=== PATIENT | female | born 1940 | race Caucasian/White ===

== ENCOUNTER 2016-06-30 19:25 | Inpatient (IN) | payer MEDICARE, MEDICAID ==
[~2016-06-30] VITALS: Ht 149.9 cm; Wt 75.8 kg
[~2016-06-30 19:25] MED LIST: ACETAMINOPHEN325 MG PO; ALDACTONE25 MG PO; ALEVE220 MG PO; ASPERCREME 5 OZ5 OZ TOPICAL; ASPIRIN325 MG PO; ASPIRIN81 MG PO; ATIVAN0.5 MG PO; ATIVAN1 MG PO; AZELASTINE137 MCG/0. NASAL; BENADRYL 2% CRE30 GM TOPICAL; BENADRYL25 MG PO; BUMETANIDE0.5 MG PO; BUMEX 1 MG TAB1 MG PO; BUMEX2 MG PO; C-10001000 MG PO; CALCIUM 600+D T1 TA1 PO; CELEXA20 MG PO; CEREFOLIN TAB1 TAB PO; COLACE100 MG PO; COMBIVENT RESPIM4 GM; COMBIVENT RESPIM4 GM INH; DULCOLAX10 MG/SUPP RC; EFFEXOR100 MG PO; EFFEXOR25 MG PO; FERROUS SULFAT325 MG PO; FLUOROMETHOLONE5 ML EACH EYE; GABAPENTIN100 MG PO; GLUCAGEN1 MG/VIAL IM; GLUCAGEN1 MG/VIAL SC; HUMALOG 30100 UNITS/ SC; IPRAT-ALBUT 0.5-3 ML UPD; ISOSORBIDE MONO30 M1 PO; Imdur PO; K-TAB10 MEQ PO; LANOXIN125 MCG PO; LANOXIN250 MCG PO; LANTUS INSULIN10 ML SC; LANTUS SOL100 UNIT/1 SC; LIDODERM 5 %1 PATCH TRANSDERM; LIPITOR10 MG PO; MIRALAX17 GM PO; MIRAPEX1 MG PO; MOBIC7.5 MG PO; NITROSTAT0.4 MG SL; NOVOLOG100 U/M1 SC; OXYCONTIN15 MG PO; PLAVIX75 MG PO; PRADAXA150 MG PO; PRADAXA75 MG PO; PRILOSEC20 MG PO; PROAIR HFA8.5 GM INH; PROTONIX40 MG PO; PROVENTIL HFA6.7 GM INH; RANEXA500 MG PO; RESTORIL15 MG PO; ROCEPHIN 1 GM/D51 G1 IM; SENOKOT-S TABLE1 TAB PO; SPIRIVA18 MCG INH; SYNTHROID125 MCG PO; SYNTHROID137 MCG PO; SYNTHROID75 MCG PO; TAMOXIFEN CITRA20 MG PO; THEOPHYLLINE A300 MG PO; ULTRAM50 MG PO; VITAMIN D31000 UNI2 PO; VITAMIN E600 UNIT PO; XOPENEX 0.0.63 MG/3 UPD; ZANAFLEX2 M1 PO; ZANAFLEX4 MG PO; ZANTAC150 MG PO; ZETIA10 MG PO; ZITHROMAX 500M500 MG PO; ZITHROMAX500 MG PO; [UNRECOGNIZED DRUG - OTHER] IM
[2016-06-30 20:28] LABS: BASOPHILS 0.4 % (0.0-2.0); EOSINOPHILS 0.4 % (0-7); HEMATOCRIT 27.5 % (36.0-48.0); HEMOGLOBIN 8.5 g/dL (12-16); IMMATURE GRANULOCYTES 0.1 % (0-5); LYMPHOCYTES 18.8 % (15-50); MCH 27.7 pg (26.0-34.0); MCHC 30.9 g/dL (31.0-37.0); MCV 89.6 fL (80.0-100.0); MONOCYTES 6.4 % (2-11); NEUTROPHILS 73.9 % (40-80); PLATELET COUNT 211 10x3/uL (130-400); RBC 3.07 10x6/uL (4.00-5.40); RDW 15.8 % (11.5-14.5); WBC 9.5 10x3/uL (4.8-10.8)
[2016-06-30 20:57] LABS: ALBUMIN 2.7 g/dL (3.4-5.0); ALKALINE PHOSPHATASE 94 U/L (46-116); ALT (SGPT) 28 U/L (10-68); BILIRUBIN - TOTAL 0.33 mg/dL (0.2-1.3); CALC OSMOLALITY 280 mosm/kg (275-300); CALCIUM 7.7 mg/dL (8.5-10.1); CHLORIDE - SERUM 99 mmol/L (98-107); CREATININE - SERUM 1.8 mg/dL (0.6-1.3); PROTEIN - SERUM 7.4 g/dL (6.4-8.2); SODIUM 134 mmol/L (136-145); UREA NITROGEN 39 mg/dL (7-18); eGFR NON AFRICAN AMERICAN 29 mL/min (90-120)
[2016-06-30 21:02] LABS: GLUCOSE 178 mg/dL (74-106)
[2016-06-30 21:12] LABS: CREATINE KINASE 291 UL (21-215)
[2016-06-30 21:18] LABS: TROPONIN-I 0.092 ng/mL (0.000-0.060)
[2016-06-30 22:21] LABS: APPEARANCE CLEAR (CLEAR); COLOR YELLOW (YELLOW)
[2016-06-30 22:22] LABS: BILIRUBIN NEGATIVE (NEGATIVE); GLUCOSE NEGATIVE (NEGATIVE); KETONE NEGATIVE (NEGATIVE); LEUKOCYTE ESTERASE NEGATIVE (NEGATIVE); NITRITE NEGATIVE (NEGATIVE); PROTEIN TRACE mg/dL (NEGATIVE); UROBILINOGEN NORMAL (NORMAL)
[2016-06-30 22:40] VITALS: BP 122/58
--- NOTE | 2016-06-30 22:40 | NUR ---
PT ARRIVED ON UNIT VIA STRETCHER, PT CONFUSED AND LETHARGIC AT THIS TIME, ON 2L NC WITH 97% O2 SAT. CRACKLES HEARD IN B/L UPPER LOBES, DIMINISHED IN B/L LOWER LOBES, S1S2, CM-NSR, PATENT RIGHT HAND PIV S/L, PATENT LEFT A/C PIV WITH NS INFUSING VIA PUMP, ABODMEN IS DISTENDED, HERNIA NOTED, HYPO BS, PATENT F/C WITH CONCENTRATED UOP, EDEMA NOTED IN ALL EXTREMETIES, ALL PPP, VSS, WILL CON'T TO MONITOR
[2016-06-30 22:52] VITALS: BP 122/58; BMI 33.8
[2016-06-30 23:00] VITALS: BP 128/60
--- NOTE | 2016-06-30 23:15 | NUR ---
CONSULT CALLED TO DR. DOMINIQUE, NEW ORDERS RECIEVED
[2016-06-30] MEDS ORDERED: IPRAT-ALBUT 0.5-3 ML UPD (23:19)
[2016-06-30] MEDS ORDERED: VOLTAREN100 GM TOPICAL (23:20)
[2016-06-30] MEDS ORDERED: SCOT-TUSSI10 MG/5 ML PO (23:20)
[2016-06-30 23:30] VITALS: BP 144/72
[2016-07-01] VITALS (23 sets, daily range): BP systolic 113–158; BP diastolic 51–130; Ht 149.9 cm; Wt 75.8 kg
--- NOTE | 2016-07-01 01:25 | NUR ---
PT AWAKE AT THIS TIME, ATTEMPTING TO CLIMB OOB, REORIENTED PT AT THIS TIME
--- NOTE | 2016-07-01 03:22 | NUR ---
REASSESSMENT COMPLETE, PT MORE AWAKE AT THIS TIME, STILL CONFUSED, RESTING COMFORTABLY
[2016-07-01 05:08] LABS: BASOPHILS 0.3 % (0.0-2.0); EOSINOPHILS 0.1 % (0-7); HEMATOCRIT 24.9 % (36.0-48.0); IMMATURE GRANULOCYTES 0.4 % (0-5); LYMPHOCYTES 30.7 % (15-50); MCHC 30.1 g/dL (31.0-37.0); MCV 89.6 fL (80.0-100.0); MEAN PLATELET VOLUME 9.2 fL (7.4-10.4); MONOCYTES 10.3 % (2-11); NEUTROPHILS 58.2 % (40-80); PLATELET COUNT 202 10x3/uL (130-400); RBC 2.78 10x6/uL (4.00-5.40); RDW 15.6 % (11.5-14.5); WBC 7.5 10x3/uL (4.8-10.8)
--- NOTE | 2016-07-01 05:16 | NUR ---
LABS REVIEWED. BS 78 GIVEN APPLE JUICE. WILL REASSESS.
[2016-07-01 05:20] LABS: HEMOGLOBIN 7.5 g/dL (12-16)
[2016-07-01 05:59] LABS: ALBUMIN 2.1 g/dL (3.4-5.0); BILIRUBIN - TOTAL 0.27 mg/dL (0.2-1.3); CARBON DIOXIDE 25.5 mmol/L (21.0-32.0); CREATININE - SERUM 1.6 mg/dL (0.6-1.3); MAGNESIUM - SERUM 1.8 mg/dL (1.8-2.4); PHOSPHOROUS 3.1 mg/dL (2.5-4.9); POTASSIUM - SERUM 4.5 mmol/L (3.5-5.1); PROTEIN - SERUM 6.6 g/dL (6.4-8.2); TROPONIN-I 0.157 ng/mL (0.000-0.060)
[2016-07-01 06:00] LABS: CALCIUM 6.6 mg/dL (8.5-10.1)
--- NOTE | 2016-07-01 07:00 | NUR ---
REPORT RECIEVED, INITIAL ASSESSMENT COMPLETE, PLEASE SEE FLOW SHEETS FOR DETAILS. PT CONFUSED, SAID SHE LIVED AT HOME WITH HER DAUGHTER AND SON-IN-LAW, WHEN IN FACT SHE CAME FROM [facility]. ASKED FOR WATER AND THIS WAS PROVIDED AND SHE SPIT IN ON THE FLOOR, THEN ASKED FOR MORE AND SWALLOWED. BED LOW AND LOCKED, CALL LIGHT IN REACH, BED ALAERM ON. VSS AT THIS TIME, WILL CONTINUE TO MONITOR.
--- NOTE | 2016-07-01 08:09 | NUR ---
PT STARTED PULLING ON LLAMAS AND WHEN CHECK WOULD NOT SLIGHTLY ADVANCE OR COME OUT, LLAMAS WAS DC'D WITH 400 SLIGHTLY BLOODY URINE. PT AGGITATED AND YELLING OUT THAT SHE NEEDS HELP, WHEN ASKED WHY RAMAMEHNAZ SAID SHE NEEDED TO "GET OUTTA HERE". WILL CONTINUE TO MONITOR.
--- NOTE | 2016-07-01 08:17 | NUR ---
PAGED DR SPRAGUE ABOUT PT H&H.
--- NOTE | 2016-07-01 08:45 | NUR ---
SPOKE WITH DR SPRAGUE, RECIVED NEW ORDERS TO GIVE ATIVAN 0.5MG Q2H PRN, TYPE AND SCREEN FOR ONE UNIT OF PRBC, AND TO GIVE LASIX ONCE THE PRBC WERE GIVEN.
--- NOTE | 2016-07-01 09:00 | NUR ---
PT AGGITATED AND TALKING TO SOMEONE THAT IS NOT THERE, WHEN ASKED IF SHE WANTED BREAKFAST SHE SAID NOT. FAMILY ENTERED ROOM AND SHE TOLD THEM SHE WAS HUNGRY AND THIRSTY. THAT FAMILY MEMBER FED HER THE JELLO AND SHE DID NOT WANT ANY MORE. ONCE FAMILY MEMBER GONE, WENT BACK INTO ROOM AND ASKED IF SHE WANTED MORE AND SHE SAID NO. PT STARTED YELLING AT ME TO LEAVE HER ALONE SO I LEFT THE ROOM.
--- NOTE | 2016-07-01 10:15 | NUR ---
PT RIPPED OUT RIGHT HAND PIV. DRESSING APPLIED. WILL MONITOR AND ATTEMPT TO PLACE NEW PIV.
--- NOTE | 2016-07-01 10:42 | NUR ---
PATIENT IS A PATIENT FROM [facility]. SHE IS CONFUSED AND NOT ABLE TO ANSWER MY QUESTIONS. SHE SHOULD RETURN TO [facility] AT DISCHARGE. CM TO FOLLOW.
--- NOTE | 2016-07-01 11:02 | NUR ---
Is the patient Alert and Oriented? No 0 * Facility Name [facility] 0 * ADLs Total Dependent 0 * Additional services required to return to the preadmission environment? No 0 * Can the patient safely return to the preadmission environment? Yes 0 * Has this patient been hospitalized within the prior 30 days at any hospital? No VISIT FROM ZEHRA MORGAN, AT [facility]. 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 SHE STATES PATIENT IS A FULL CODE. CM TO FOLLOW.
--- NOTE | 2016-07-01 11:15 | NUR ---
REASSESSMENT COMPLETE, PLEASE SEE FLOW SHEETS FOR DETAILS. VSS AT THIS TIME, WILL CONTINUE TO MONITOR.
--- NOTE | 2016-07-01 13:00 | NUR ---
PT NOT TRYING TO GET OOB, VSS AT THIS TIME, BED LOW AND LOCKED, WILL CONTINUE TO MONITOR.
--- NOTE | 2016-07-01 13:30 | NUR ---
DANUTA RN ATTEMPTED IV PLACEMENT X2 UNSUCCESSFUL. TJ OWEN ATTEMPTED ONCE AND SUCCESSFULLY PLACED A 22 GUAGE PIV. NS WAS RESTARTED AT 125.
--- NOTE | 2016-07-01 13:53 | NUR ---
OBTAINED BLOOD CONSENT FROM TIM VILLANUEVAELS, PT SON, TO GIVE BLOOD TRANSFUSIONS TO PT.
--- NOTE | 2016-07-01 14:39 | NUR ---
REASSESSMENT COMPLETE, PLEASE SEE FLOW SHEETS FOR DETAILS. BED LOW AND LOCKED, CALL LIGHT IN REACH, WILL CONTINUE TO MONITOR.
--- NOTE | 2016-07-01 15:15 | NUR ---
FAMILY IN ROOM, ANSWERED QUESTIONS. VSS AT THIS TIME, WILL CONTINUE TO MONITOR.
--- NOTE | 2016-07-01 16:09 | NUR ---
PT RECIEVED FULL BED BATH AND LINEN CHANGE, PULLED UP IN BED. VSS AND RECIEVING PRBC AT THIS TIME. WILL CONTINUE TO MONITOR.
--- NOTE | 2016-07-01 16:11 | NUR ---
SPOKE WITH DR SPRAGUE ABOUT WHICH INSULIN TO USE SINCE 3 DIFFERENT ONES WERE ORDERED. HE SAID TO KEEP LANTIS AND HUMALOG AND GIVE IN A LOW RESISTANCE SLIDING SCALE.
--- NOTE | 2016-07-01 16:14 | NUR ---
PT FSBS 151.
--- NOTE | 2016-07-01 17:11 | NUR ---
CHECKED IN ON PT, STILL RECIEVING PRBC. VSS AT THIS TIME, OFFERED DINNER, SHE REFUSED. OFFERED JELLO AND APPLE SAUCE, SAID SHE WOULD LIKE BOTH. CAME BACK WITH BOTH AND SHE DIDNT WANT TO EAT IT, SHE SAID "I WONT EAT UNTIL TIM IS HERE" AND THAT SHE WOULD "ONLY EAST IT IF (I) FED TIM TOO". PT STILL VERY CONFUSED AND YELLING OUT INAPPROPRIATELY. NOT TRYING TO GET OOB. BED LOW AND LOCKED, CALL LIGHT IN REACH. WILL CONTINUE TO MONITOR.
--- NOTE | 2016-07-01 17:49 | NUR ---
1742 PRBC COMPLETE. 1748 LASIX GIVEN. PT DENIES PAIN/NEEDS AT THIS TIME, VSS, BED LOW AND LOCKED, WILL CONTINUE TO MONITOR.
--- NOTE | 2016-07-01 18:30 | NUR ---
FAMILY IN ROOM, DAUGHTER REGINALDO CASTRO, SHE GAVE HER NUMBER TO NOTIFY OF CHANGES SHE LIVES THE [place]. GAVE UPDATES AND ANSWERED ALL QUESTIONS.
--- NOTE | 2016-07-01 19:30 | NUR ---
ASSESSMENT COMPLETE. AWAKE, PERRLA 4MM BRISK. DISORIENTED TO PLACE, TIME, SITUATION. UNCOOPERATIVE. DIMINISHED LLL, RLL. WILL NOT COOPERATE TO HEAR CLEARLY IN UPPER LOBES. LLAMAS DRAINING CONCENTRATED URINE. GENERALIZED WEAKNESS. NSR ON MONITOR. RF PIV SEE IV FLOWSHEET. FOR OTHER ASSESSMENT FINDINGS SEE FLOWSHEET.
--- NOTE | 2016-07-01 21:12 | NUR ---
FAMILY AT BEDSIDE. GIVEN UPDATE. NO NEW CHANGES. VSS WILL CONTINUE TO MONITOR.
--- NOTE | 2016-07-01 23:18 | NUR ---
REPORT RECIEVED. ASSESSMENT COMPLETE PER FLOW SHEET. NO NEW FINDINGS WILL CONTINUE TO MONITOR.
[2016-07-02] VITALS (24 sets, daily range): BP systolic 105–171; BP diastolic 50–90
--- NOTE | 2016-07-02 01:12 | NUR ---
GIVEN ICE WATER PER REQUEST. DENIES FURTHER NEEDS.
--- NOTE | 2016-07-02 03:19 | NUR ---
REASSESSMNT COMPLETE PER FLOW SHEET. VSS NO NEW CHANGES AT THIS TIME.
[2016-07-02 06:00] LABS: BASOPHILS 0.3 % (0.0-2.0); EOSINOPHILS 0.1 % (0-7); IMMATURE GRANULOCYTES 0.4 % (0-5); LYMPHOCYTES 23.6 % (15-50); MCH 27.9 pg (26.0-34.0); MCHC 31.9 g/dL (31.0-37.0); MEAN PLATELET VOLUME 9.1 fL (7.4-10.4); MONOCYTES 6.7 % (2-11); NEUTROPHILS 68.9 % (40-80); PLATELET COUNT 200 10x3/uL (130-400); RDW 15.2 % (11.5-14.5); WBC 7.9 10x3/uL (4.8-10.8)
[2016-07-02 06:06] LABS: HEMATOCRIT 30.4 % (36.0-48.0); HEMOGLOBIN 9.7 g/dL (12-16); MCV 87.4 fL (80.0-100.0); RBC 3.48 10x6/uL (4.00-5.40)
[2016-07-02 06:22] LABS: HEMOGLOBIN A1C 8.3 % (4.8-6.0)
[2016-07-02 06:26] LABS: ALBUMIN 2.3 g/dL (3.4-5.0); ANION GAP 11.1 mmol/L (8-16); BILIRUBIN - TOTAL 0.3 mg/dL (0.2-1.3); CALCIUM 7.8 mg/dL (8.5-10.1); CARBON DIOXIDE 26.7 mmol/L (21.0-32.0); CHOL - HDL RATIO 5.1 ratio (2.3-4.1); LDL-HDL RATIO 3.1 ratio (1.5-3.5); MAGNESIUM - SERUM 2.1 mg/dL (1.8-2.4); PHOSPHOROUS 2.9 mg/dL (2.5-4.9); PROTEIN - SERUM 7.5 g/dL (6.4-8.2); THYROID STIMULATING HORMONE 6.58 uIU/mL (0.36-3.74)
[2016-07-02 06:30] LABS: POTASSIUM - SERUM 3.8 mmol/L (3.5-5.1)
--- NOTE | 2016-07-02 07:20 | NUR ---
NOTED PT STATED SHE COULD NOT FIND HER BOTTOM DENTURE PLATE, THIS NURSE LOOKED THROUGH LINEN, DRAWERS, ON FLOOR, AND ALL OVER BED. DID NOT FIND BOTTOM DENTURE PLATE. DENTURES ARE NOT LISTED ON INVENTORY LIST. WILL CONTINUE PLAN OF CARE.
--- NOTE | 2016-07-02 07:43 | NUR ---
SITTING UP IN BED AT THIS TIME RESTING. AWAKENS EASILY WHEN STAFF STATES PT NAME. NO ACUTE DISTRESS NOTED. NOTED CONFUSION TO TIME AND SITUATION. WILL CONTINUE PLAN OF CARE.
--- NOTE | 2016-07-02 09:10 | NUR ---
SITTING UP IN BED AT THIS TIME EATING BREAKFAST VIA SET UP ASSIST. NOTED PRODOUCTIVE DARK COLORED THICK SPUTUM, PT GIVEN YAUNKER TO HELP SUCTION SPUTUM. NO ACUTE DISTRESS NOTED. WILL CONTINUE PLAN OF CARE
--- NOTE | 2016-07-02 10:26 | NUR ---
LYING IN BED RESTING AT THIS TIME. NO ACUTE DISTRESS NOTED. AWAKEN EASILY WHEN STAFF STATES PT NAME. WILL CONTINUE PLAN OF CARE.
--- NOTE | 2016-07-02 10:43 | NUR ---
INCONTINENT BOWEL MOVEMENT NOTED. PT CLEANED UP VIA TOTAL ASSIST. SMALL AMOUNT OF DARK COLORED LIQUID STOOL. PT ABLE TO TURN SELF WITH MODERATE ASSIST. TOTAL BED CHANGE PROVIDED. NO ACUTE DISTRESS NOTED. WILL CONTINUE PLAN OF CARE.
--- NOTE | 2016-07-02 12:18 | NUR ---
SITTING UP IN BED EATING LUNCH AT THIS TIME. NO ACUTE DISTRESS NOTED. DENIES ANY NEEDS. WILL CONTINUE PLAN OF CARE.
--- NOTE | 2016-07-02 15:19 | NUR ---
SITTING UP IN BED AT THIS TIME VISITING WITH VISITORS. NO ANXIETY NOTED. NO ACUTE DISTRESS NOTED. WILL CONTINUE PLAN OF CARE.
--- NOTE | 2016-07-02 16:06 | NUR ---
LARGE FORMED WITH SOME WATERY BLACK IN COLOR BOWEL MOVEMENT NOTED, CONTINENT VIA BEDPAN. ANJELICA CARE AND LLAMAS CARE PROVIDED VIA TOTAL ASSIST. PT TURNS VIA MODERATE ASSIST. NO ACUTE DISTRESS NOTED. WILL CONTINUE PLAN OF CARE.
--- NOTE | 2016-07-02 16:22 | NUR ---
EDDIE FROM [facility] CALLED UNIT TO NOTIFY THAT PTS BOTTOM DENTURE PLATE IS IN FACT AT [facility].
--- NOTE | 2016-07-02 18:44 | NUR ---
PT NOTED TO HAVE A POOR APPETITE. MIGHTY SHAKE GIVEN TO PT. PT DRANK HALF OF MIGHTY SHAKE. WILL CONTINUE TO OFFER SNACKS. NO DISTRESS NOTED. WILL CONTINUE PLAN OF CARE.
--- NOTE | 2016-07-02 19:00 | NUR ---
PT DISORIENTED TO TIME AND SITUATION. FOLLOWS COMMANDS. VSS, PT REPOSITIONED FOR COMFORT. LUNG SOUNDS CRACKLES/DIMINISHED, SPO2 98. BOWEL SOUNDS ACTIVE. PERIPHERAL PULSES PRESENT. VOICES NO NEEDS AT THIS TIME. CALL LIGHT AND BEDSIDE TABLE WITHIN PT REACH. CPOC.
--- NOTE | 2016-07-02 21:00 | NUR ---
FRESH WATER TO BEDSIDE. PT REPOSITIONED FOR COMFORT. PARTIAL LINEN CHANGE. VSS, VOICES NO FURTHER NEEDS AT THIS TIME. CALL LIGHT AND BEDSIDE TABLE WITHIN PT REACH. CPOC.
--- NOTE | 2016-07-02 23:00 | NUR ---
REASSESSMENT COMPLETE, NO ACUTE CHANGES AT THIS TIME. PT REPOSITIONED FOR COMFORT. DENIES NEEDS AT THIS TIME. CALL LIGHT AND BEDSIDE TABLE WITHIN PT REACH. CPOC.
[2016-07-03] VITALS (19 sets, daily range): BP systolic 110–165; BP diastolic 42–90
--- NOTE | 2016-07-03 01:00 | NUR ---
PARTIAL LINEN CHANGE COMPLETE. VSS, NO S/S OF ACUTE DISTRESS AT THIS TIME. DENIES NEEDS. CALL LIGHT AND BEDSIDE TABLE WITHIN PT REACH. CPOC.
--- NOTE | 2016-07-03 03:00 | NUR ---
REASSESSMENT COMPLETE, NO ACUTE CHANGES AT THIS TIME. PT REMAINS CALM AND COOPERATIVE. VSS. PT REPOSITIONED FOR COMFORT. DENIES FURTHER NEEDS AT THIS TIME. CALL LIGHT AND BEDSIDE TABLE WITHIN PT REACH. CPOC.
--- NOTE | 2016-07-03 05:00 | NUR ---
NO S/S OF ACUTE DISTRESS AT THIS TIME. PT RESTING COMFORTABLY WITH VSS. REPOSITIONED SELF. NO S/S OF PAIN AT THIS TIME. CALL LIGHT AND BEDSIDE TABLE WITHIN PT REACH. CPOC.
[2016-07-03 05:43] LABS: BASOPHILS 0.3 % (0.0-2.0); EOSINOPHILS 0.4 % (0-7); HEMATOCRIT 28.9 % (36.0-48.0); HEMOGLOBIN 8.9 g/dL (12-16); IMMATURE GRANULOCYTES 0.3 % (0-5); LYMPHOCYTES 24.3 % (15-50); MCH 27.2 pg (26.0-34.0); MCHC 30.8 g/dL (31.0-37.0); MCV 88.4 fL (80.0-100.0); MEAN PLATELET VOLUME 9.2 fL (7.4-10.4); NEUTROPHILS 65.7 % (40-80); PLATELET COUNT 205 10x3/uL (130-400); RBC 3.27 10x6/uL (4.00-5.40); RDW 15.6 % (11.5-14.5); WBC 7.2 10x3/uL (4.8-10.8)
[2016-07-03 06:01] LABS: CALCIUM 7.7 mg/dL (8.5-10.1); CARBON DIOXIDE 25.8 mmol/L (21.0-32.0); CREATININE - SERUM 0.9 mg/dL (0.6-1.3); MAGNESIUM - SERUM 2.1 mg/dL (1.8-2.4); PHOSPHOROUS 2.5 mg/dL (2.5-4.9); POTASSIUM - SERUM 3.8 mmol/L (3.5-5.1)
--- NOTE | 2016-07-03 08:25 | NUR ---
SITTING UP IN BED RESTING AT THIS TIME. RESPIRATIONS AT STEADY AND UNLABORED RATE. AWAKENS EASILY WHEN STAFF STATES PT NAME. NO ACUTE DISTRESS NOTED. WILL CONTINUE PLAN OF CARE.
--- NOTE | 2016-07-03 09:27 | NUR ---
UP IN BED AWAKE AT THIS TIME WATCHING TV. NO ACUTE DISTRESS NOTED. DENIES ANY NEEDS. WILL CONTINUE PLAN OF CARE.
--- NOTE | 2016-07-03 11:31 | NUR ---
SITTING UP IN CHAIR BESIDE BED AT THIS TIME. TRANSFERRED WITH ASSIST FROM PHYSICAL THERAPY. DENIES ANY NEEDS. NO ACUTE DISTRESS NOTED. WILL CONTINUE PLAN OF CARE.
--- NOTE | 2016-07-03 12:43 | NUR ---
WALKING WITH PHYSICAL THERAPY AT THIS TIME. DENIES ANY NEEDS. WILL COTINUE PLAN OF CARE.
--- NOTE | 2016-07-03 13:28 | NUR ---
PT TRANSFERRED FROM CHAIR TO BED VIA STAND BY ASSIST. DENIES ANY NEEDS. WILL CONTINUE PLAN OF CARE.
--- NOTE | 2016-07-03 14:43 | NUR ---
RESTING AT THIS TIME, EYES CLOSED. AWAKENS EASILY WHEN STAFF STATES PT NAME. NO ACUTE DISTRESS NOTED. NOTED PT DOES HAVE TRANSFER ORDER TO THE FLOOR, WAITING TO BE NOTIFIED OF ROOM NUMBER. WILL CONTINUE PLAN OF CARE.
--- NOTE | 2016-07-03 17:01 | NUR ---
SITTING UP IN BED WATCHING TV AT THIS TIME. NO ACUTE DISTRESS NOTED. WILL CONTINUE PLAN OF CARE.
--- NOTE | 2016-07-03 19:22 | NUR ---
REPORT GIVEN TO ACCEPTING NURSE AT [facility]. NOTED PT TO GO TO ROOM 2205. WILL TRANSFER PT SHORTLY.
--- NOTE | 2016-07-03 19:43 | NUR ---
PT TRANSFERRED TO 2205. NO ACUTE DISTRESS. NO FURTHER ACTIONS.
--- NOTE | 2016-07-03 20:15 | NUR ---
RECIEVED PT FROM ICU, ASSESSMENT COMPLETED, NO ACUTE DISTRESS NOTED, NO BREAKDOWN OR WOUNDS NOTED, LUNGS WITH RHONCI, SOB NOTED, REFUSES O2, LLAMAS IN PLACE DRAINING TO GRAVITY, ORIENTED TO ROOM AND CALL LIGHT, SR'S UP X2, CL IN REACH, WILL MONITOR
--- NOTE | 2016-07-03 21:56 | NUR ---
MEDS GIVEN PER MAR, HUMBLE WELL, DENIES NEEDS, SR'S UP X2, CL IN REACH, SCD'S IN PLACE
--- NOTE | 2016-07-03 23:33 | NUR ---
LYING IN BED AWAKE, NO DISTRESS NOTED, DENIES NEEDS, SR'S UP X2, CL IN REACH
--- NOTE | 2016-07-04 03:17 | NUR ---
RESTING WITH EYES CLOSED, RESP WITH EASE, NO DISTRESS NOTED, SR'S UP X2, CL IN REACH
[2016-07-04 04:52] LABS: BASOPHILS 0.1 % (0.0-2.0); EOSINOPHILS 0.7 % (0-7); HEMATOCRIT 28.5 % (36.0-48.0); HEMOGLOBIN 8.9 g/dL (12-16); IMMATURE GRANULOCYTES 0.4 % (0-5); MCH 27.3 pg (26.0-34.0); MCHC 31.2 g/dL (31.0-37.0); MCV 87.4 fL (80.0-100.0); MEAN PLATELET VOLUME 9.1 fL (7.4-10.4); MONOCYTES 8.6 % (2-11); NEUTROPHILS 66.2 % (40-80); PLATELET COUNT 201 10x3/uL (130-400); RBC 3.26 10x6/uL (4.00-5.40); RDW 15.4 % (11.5-14.5); WBC 6.7 10x3/uL (4.8-10.8)
[2016-07-04 05:05] LABS: ANION GAP 10.4 mmol/L (8-16); CALCIUM 7.3 mg/dL (8.5-10.1); CREATININE - SERUM 0.8 mg/dL (0.6-1.3); POTASSIUM - SERUM 3.4 mmol/L (3.5-5.1)
--- NOTE | 2016-07-04 05:42 | NUR ---
BLOOD SUGAR 64, NO DISTRESS NOTED, SNACK PROVIDED, CL IN REACH
--- NOTE | 2016-07-04 07:44 | NUR ---
AWAKE AND ALERT. ORIENTED TO SELF. REORIENTED PERSTAFF. LUNGS ARE CLEAR BUT DIMINISHED. PATIENT REPORTS PRODUCTIVE COUGH WITH HOWELL SPUTUM. SKIN IS INTACT WITHOUT REDNESS. IV TO RIGHT FOREARM IS PATENT WITHOUT REDNESS AT INSERTION SITE. SCD'S IN PLACE. DENIES NEEDS. LLAMAS PATENT WITH CLEAR TEA COLORED URINE.
[2016-07-04 12:16] VITALS: BP 144/66
--- NOTE | 2016-07-04 13:45 | NUR ---
LLAMAS D/C WITH TIP INTACT. PATIENT TOLERATED WITHOUT C/O PAIN. IV RESITED TO LEFT UPPER ARM WITH 20G AFTER ONE ATTEMPT. IV TO RIGHT FOREARM D/C WITH CATHETER INTACT.
--- NOTE | 2016-07-04 15:00 | NUR ---
PULLED IV OUT PER SELF. RESITED TO RIGHT WRIST AFTER 5 ATTEMPTS PER STAFF. PATIENT IS INTERMITTANTLY CONFUSED AND KEEPS CALLING STAFF PEOPLE SHE KNOWS.
[2016-07-04 15:40] VITALS: BP 175/67
--- NOTE | 2016-07-04 17:30 | NUR ---
SUPPER SERVED IN ROOM. NOT EATING MUCH. FSBS. 129. NO COVERAGE REQUIRED. NO CHANGES NOTED. DENIES NEEDS.
--- NOTE | 2016-07-04 19:15 | NUR ---
REC'D IN BED AWAKE AND ALERT. RESP EVEN AND UNLABORED WITH NO DISTRESS NOTED. CAN VOICE NEEDS AND WANTS. TAKE ALL PO MEDS WHOLE AND WITH OUT DIFFICULTY NOTED. ASSESSMENT COMPLETED. C/L IN REACH AT BESIDE.
[2016-07-04 20:28] VITALS: BP 163/56
[2016-07-04 23:00] VITALS: BP 137/61
--- NOTE | 2016-07-05 04:00 | NUR ---
PT IN BED WITH NO NEEDS. IV TO RIGHT WRIST PATENT AND FLUIDS RUNNING PER ORDER. O2 @ 2 PER NASAL CANNULA. DIMINISHED LUNG SOUNDS. TELEMETRY ON. PT REFUSING SCD'S. SIDE RAILS ARE UP X 2. BED IS LOW. CALL LIGHT IS IN REACH.
--- NOTE | 2016-07-05 04:20 | NUR ---
RESTING WELL AT THIS TIME WITH NO DISTRESS NOTED. WILL CONTINUE TO OBSERVE FOR NEEDS. C/L IN REACH AT BEDSIDE.
[2016-07-05 05:54] VITALS: BP 165/85
[2016-07-05 06:40] LABS: BASOPHILS 0.4 % (0.0-2.0); HEMATOCRIT 29.6 % (36.0-48.0); HEMOGLOBIN 9.2 g/dL (12-16); IMMATURE GRANULOCYTES 0.2 % (0-5); MCH 27.2 pg (26.0-34.0); MCHC 31.1 g/dL (31.0-37.0); MCV 87.6 fL (80.0-100.0); MEAN PLATELET VOLUME 9.1 fL (7.4-10.4); NEUTROPHILS 60.4 % (40-80); PLATELET COUNT 212 10x3/uL (130-400); RBC 3.38 10x6/uL (4.00-5.40); RDW 15.6 % (11.5-14.5); WBC 8.1 10x3/uL (4.8-10.8)
[2016-07-05 07:05] LABS: ANION GAP 12.1 mmol/L (8-16); CALCIUM 7.4 mg/dL (8.5-10.1); CARBON DIOXIDE 23.7 mmol/L (21.0-32.0); CREATININE - SERUM 0.9 mg/dL (0.6-1.3); MAGNESIUM - SERUM 2.1 mg/dL (1.8-2.4); PHOSPHOROUS 2.2 mg/dL (2.5-4.9); POTASSIUM - SERUM 3.8 mmol/L (3.5-5.1)
--- NOTE | 2016-07-05 08:00 | NUR ---
PT RECEIVED LYING IN BED. LUNG SOUNDS DIMINISHED BILATEARALLY. IV NOTED TO RIGHT WRIST. NS @ 50 CC/HR. PATENT. DRESSING CDI. MIDLINE IV NOTED TO RIGHT UPPER ARM. SALINE LOCK. DRESSING CDI. FALL RISK BRACELET ON. BED ALARM ON AND ATTACHED TO PT. DENIES NEEDS AT THIS TIME. BED LOW. PHONE AND CALL LIGHT IN REACH. SIDE RAILS UP X2.
[2016-07-05] MEDS ORDERED: VANCOMYCIN 1 GM/1 G1 IV (08:14)
[2016-07-05] MEDS ORDERED: BYSTOLIC5 MG PO (08:15)
[2016-07-05] MEDS ORDERED: FLORAJEN3 CAPS460 MG PO (08:17)
[2016-07-05] MEDS ORDERED: LANTUS INSULIN10 ML SC (08:19)
[2016-07-05] MEDS ORDERED: MAXIPIME 1 GM/D51 G1 IV (08:24)
[2016-07-05 09:23] VITALS: BP 131/63
--- NOTE | 2016-07-05 10:00 | NUR ---
PT LYING IN BED. ADMINISTERED AM MEDS. PT DENIES NEEDS AT THIS TIME. BED LOW. PHONE AND CALL LIGHT IN REACH. SIDE RAILS UP X2. PHONE AND CALL LIGHT IN REACH.
--- NOTE | 2016-07-05 10:17 | NUR ---
PING REASSESSMENT NOTE: PATIENT WILL DISCHARGE BACK TO [facility] TODAY BY FACILITY VAN. PING SPOKE WITH EDDIE AT [facility] AND SHE STATED SHE WILL GO TO A SKILLED BED MOST LIKELY. STATED SHE WOULD LET US KNOW IF SHE COULD NOT BE SKILLED.
--- NOTE | 2016-07-05 10:24 | NUR ---
PING REASSESSMENT NOTE: PATIENT WILL DISCHARGE BACK TO [facility] TODAY BY FACILITY VAN. PING SPOKE WITH EDDIE AT [facility] AND SHE STATED SHE WILL GO TO A SKILLED BED MOST LIKELY. STATED SHE WOULD LET US KNOW IF SHE COULD NOT BE SKILLED.
[2016-07-05 12:57] VITALS: BP 176/65
--- NOTE | 2016-07-05 13:23 | NUR ---
PT UP USING BEDROOM X1 ASSIST. SISTER OF PT AT BEDSIDE. ADMINISTERED TRAMADOL PO. DENIES NEEDS AT THIS TIME. BED LOW. PHONE AND CALL LIGHT IN REACH. SIDE RAILS UP X2.
--- NOTE | 2016-07-05 14:21 | NUR ---
REASSESSED PTS PAIN. PT RATES PAIN 12/20. ADMINISTERED ZOFRAN PO FOR NAUSEA. PT DENIES OTHER NEEDS AT THIS TIME. BED LOW. PHONE AND CALL LIGHT IN REACH. SIDE RAILS UP X2.
--- NOTE | 2016-07-05 16:00 | NUR ---
PT SITTING UP IN BED. DISCUSSED DISCHARGE INSTRUCTIONS WITH PT. INCLUDED WOUND CARE TO MIDLINE IV TO RIGHT UPPER ARM, SIGNS/SYMPTOMS OF INFECTION, AND TAKING ALL MEDICATIONS PRESCRIBED. PT VERBALIZES UNDERSTANDING. DENIES FURTHER NEEDS. BED LOW. PHONE AND CALL LIGHT IN REACH. SIDE RAILS UP X2.
[2016-07-05 16:10] VITALS: BP 153/60
--- NOTE | 2016-07-05 16:23 | NUR ---
PATIENT DISCHARGED HOME VIA WITH [facility].
== END 2016-07-05 16:55 | disposition home or self-care (01) | DRG 189 ==
LOC: D.ER 19:25 → D.ICU 21:39 → D.MS 07-03 19:45
PROVIDERS: Family Medicine; Internal Medicine Pulmonary Disease; ADMIT Family Medicine
DX: J96.22 Acute and chronic respiratory failure with hypercapnia (principal); J18.9 Pneumonia, unspecified organism; I50.23 Acute on chronic systolic (congestive) heart failure; J44.0 Chronic obstructive pulmonary disease with (acute) lower respiratory infection; I13.0 Hypertensive heart and chronic kidney disease with heart failure and stage 1 through stage 4 chronic kidney disease, or unspecified chronic kidney disease; N18.3 Chronic kidney disease, stage 3 (moderate); E11.39 Type 2 diabetes mellitus with other diabetic ophthalmic complication; H54.0 Blindness, both eyes; J96.21 Acute and chronic respiratory failure with hypoxia

== ENCOUNTER 2016-07-11 21:00 | Observation (INO) | payer MEDICARE, MEDICAID ==
[~2016-07-11] VITALS: Ht 149.9 cm; Wt 81.6 kg
[~2016-07-11 21:00] MED LIST changes: +BYSTOLIC5 MG PO; +FLORAJEN3 CAPS460 MG PO; +MAXIPIME 1 GM/D51 G1 IV; +SCOT-TUSSI10 MG/5 ML PO; +VANCOMYCIN 1 GM/1 G1 IV; +VOLTAREN100 GM TOPICAL
[2016-07-11 22:04] LABS: BASOPHILS 0.5 % (0.0-2.0); EOSINOPHILS 3.1 % (0-7); HEMOGLOBIN 9.8 g/dL (12-16); IMMATURE GRANULOCYTES 0.1 % (0-5); LYMPHOCYTES 33.7 % (15-50); MCH 26.9 pg (26.0-34.0); MCHC 31.6 g/dL (31.0-37.0); MCV 85.2 fL (80.0-100.0); MEAN PLATELET VOLUME 8.9 fL (7.4-10.4); MONOCYTES 5.6 % (2-11); PLATELET COUNT 180 10x3/uL (130-400); RBC 3.64 10x6/uL (4.00-5.40); WBC 7.6 10x3/uL (4.8-10.8)
[2016-07-11 22:12] LABS: ALBUMIN 2.7 g/dL (3.4-5.0); ANION GAP 9.2 mmol/L (8-16); BILIRUBIN - TOTAL 0.36 mg/dL (0.2-1.3); CALCIUM 8.2 mg/dL (8.5-10.1); CARBON DIOXIDE 29.2 mmol/L (21.0-32.0); CREATININE - SERUM 1.2 mg/dL (0.6-1.3); POTASSIUM - SERUM 3.4 mmol/L (3.5-5.1); PROTEIN - SERUM 6.5 g/dL (6.4-8.2)
[2016-07-11 22:49] LABS: APPEARANCE CLEAR (CLEAR); BILIRUBIN NEGATIVE (NEGATIVE); COLOR YELLOW (YELLOW); GLUCOSE NEGATIVE (NEGATIVE); KETONE NEGATIVE (NEGATIVE); LEUKOCYTE ESTERASE NEGATIVE (NEGATIVE); NITRITE NEGATIVE (NEGATIVE); PROTEIN 1+ mg/dL (NEGATIVE); SPECIFIC GRAVITY 1.015 (1.005-1.020); UROBILINOGEN NORMAL (NORMAL)
[2016-07-11 22:50] LABS: UDS - AMPHET NEGATIVE QUAL (NEGATIVE); UDS - BARB NEGATIVE QUAL (NEGATIVE); UDS - BENZO NEGATIVE QUAL (NEGATIVE); UDS - COCAINE NEGATIVE QUAL (NEGATIVE); UDS - METH NEGATIVE QUAL (NEGATIVE); UDS - OPIATE NEGATIVE QUAL (NEGATIVE); UDS - PCP NEGATIVE QUAL (NEGATIVE); UDS - THC NEGATIVE QUAL (NEGATIVE)
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
[2016-07-12 01:21] VITALS: BP 156/64; BMI 36.3
--- NOTE | 2016-07-12 01:45 | NUR ---
ADMISSION ASSESSMENT AND HISTORY COMPLETED. PT POOR HISTORIAN. ONLY WANTED TO SLEEP AND BE WARM. PICC LINE TO [facility] WITH VANCOMYCIN INFUSING. O2 2LNC. SORE APPROX 4CM IN LENGHT TO L BUTTOCKS. BRUISE TO R SHOULDER. BILAT LOWER LEGS RED AND SKIN TIGHT. SB PER CM HR 51. ORIENTED TO PERSON ONLY. SR UP X2, CALL LLIGHT WITHIN REACH AND BED ALRM ON.
--- NOTE | 2016-07-12 04:21 | NUR ---
PT RESTING WITH EYES CLOSED. RESP EVEN AND REGULAR. SR UP X2, CALL LIGHT WITHIN REACH AND BED ALARM ON.
[2016-07-12 05:55] VITALS: BP 133/55
--- NOTE | 2016-07-12 06:28 | NUR ---
VSS. SB PER CM. PT DENIED ANY DISCOMFORT. NEEDS MET; WILL CONTINUE TO MONITOR.
[2016-07-12 08:25] VITALS: BP 150/70
--- NOTE | 2016-07-12 10:53 | NUR ---
RATIONALE FOR SCD'S EXPLAINED. REFUSED SCD'S
[2016-07-12 12:53] VITALS: BP 155/65
--- NOTE | 2016-07-12 14:09 | NUR ---
PT SITTING UP IN BEDSIDE CHAIR C/O SOB. RR NONLABORED WITH NC @3L IN PLACE. 02 SAT 99% ENCOURAGED PT TO TAKE SLOW DEEP BREATHS IN THROUGH HER NOSE AND OUT OF HER MOUTH. PT DEMONSTRATED WELL. BREATHING TX COMING SHORTLY. WILL CTM.
--- NOTE | 2016-07-12 16:48 | NUR ---
FSBS 232. 4UNITS GIVEN PER SS. PT SITTING UP IN BEDSIDE CHAIR WAITING ON DINNER TRAY. WILL CTM.
[2016-07-12 16:49] VITALS: BP 93/72
--- NOTE | 2016-07-12 19:30 | NUR ---
ALERT, DISORIENTED TO TIME AND PLACE, RESP UNLAB WITH O2 @3LNC IN PLACE. TELEMETRY SHOWING HR SB PER MONITOR. RIGHT UPPER ARM PICC LINE INTACT AND LOCKED. ON LOVENOX FOR CLOTS, NOT WEARING SCDS. UP WITH ASSIST. LEGALLY BLIND. HOB UP SR UP X2, C/L IN REACH, CONTINUE TO MONITOR.
[2016-07-12 21:47] VITALS: BP 152/72
[2016-07-13 01:44] VITALS: BP 143/50
--- NOTE | 2016-07-13 02:27 | NUR ---
EYES CLOSED, RESP UNLAB WITH NO S/S OF ACUTE DISTRESS NOTED. C/L IN REACH.
[2016-07-13 06:10] VITALS: BP 181/91
[2016-07-13 06:21] LABS: BASOPHILS 0.4 % (0.0-2.0); HEMATOCRIT 28.8 % (36.0-48.0); IMMATURE GRANULOCYTES 0.2 % (0-5); LYMPHOCYTES 23.9 % (15-50); MCH 27.2 pg (26.0-34.0); MCHC 31.3 g/dL (31.0-37.0); MEAN PLATELET VOLUME 9.2 fL (7.4-10.4); MONOCYTES 8.7 % (2-11); NEUTROPHILS 64.8 % (40-80); PLATELET COUNT 174 10x3/uL (130-400); RBC 3.31 10x6/uL (4.00-5.40); RDW 15.9 % (11.5-14.5); WBC 8.1 10x3/uL (4.8-10.8)
[2016-07-13 06:27] LABS: ANION GAP 10.9 mmol/L (8-16); CARBON DIOXIDE 26.5 mmol/L (21.0-32.0); CREATININE - SERUM 1.3 mg/dL (0.6-1.3); POTASSIUM - SERUM 3.4 mmol/L (3.5-5.1)
--- NOTE | 2016-07-13 07:20 | NUR ---
RECEIVED REPORT. ASSUMED CARE OF PATIENT. CALL LIGHT WITHIN REACH. RESP EVEN AND UNLABORED. NO DISTRESS. DENIES NEEDS AT THIS TIME.
[2016-07-13 08:08] VITALS: BP 151/73
--- NOTE | 2016-07-13 09:44 | NUR ---
FSBS 202. SOLOSTAR ADMINISTERED ORDERED. NO DISTRESS. CALL LIGHT WITHIN REACH. PATIENT WITH STUDENT NURSE AT BEDSIDE.
--- NOTE | 2016-07-13 10:13 | NUR ---
PATIENTS DAUGHTER MARGA BUSH CALLED TO RECEIVE UPDATE ON HER MOTHER. SHE IS NOT LISTED ON CHART OR EMR BUT PATIENT WAS ABLE TO GIVE ME HER DAUGHTERS NAME AND GAVE PERMISSION AT THIS TIME FOR ME TO DISCUSS OF HER OF CARE. RETURNN TO PHONE AND PATIENTS DAUGHTER HAD HUNG UP. DAUGHTER NOT LISTED, NO CONTACT NUMBER, UNABLE TO RETURN CALL TO HER AT THIS TIME.
--- NOTE | 2016-07-13 10:20 | NUR ---
SPOKE WITH AND RECEIVED NEW ORDERS FOR K+ SUPPLEMENT DAILY DUE TO K+ THIS AM, RECEIVING LASIX WITH NO SUPPLEMENT. ORDERS PLACED IN SYSTEM.
--- NOTE | 2016-07-13 11:29 | NUR ---
FSBS 229. 4 UNITS HUMALOG ADMINISTERED PER SLIDING SCALE AT THIS TIME. NO DISTRESS.
[2016-07-13 11:39] VITALS: BP 150/54
[2016-07-13 13:08] VITALS: Ht 149.9 cm; Wt 81.6 kg
[2016-07-13 15:42] VITALS: BP 145/64
--- NOTE | 2016-07-13 15:46 | NUR ---
Patient Name: KATEY CASTRO Admission Status: ER Accout number: [id number] Admission Date: 07-11-2016 : 1941 Admission Diagnosis: Attending: HUY Current LOS: 2 Anticipated DC Date: Planned Disposition: Nursing Facility GIUSEPPE Cert Primary Insurance: MEDICARE A & B PLANNED EXTERNAL PROVIDER: [facility], MEDICARE REHAB BED Discharge Planning Comments: * Is the patient Alert and Oriented? Yes 0 * How many steps to enter\exit or inside your home? NONE 0 * PCP DR.. SPRAGUE 0 * Pharmacy [facility] 0 * Preadmission Environment [facility] 0 * Facility Name [facility] 0 * ADLs Partial Dependent 0 * Partial ADLs (Assistance needed) Bathing Medication Management Transfers 0 * Equipment Other 0 * Other Equipment ALL EQUIPMENT PROVIDED BY [facility] 0 * List name and contact numbers for known caregivers / representatives who currently or will assist patient after discharge: [facility], 0 * Community resources currently utilized None 0 * Please name any agencies selected above. NONE 0 * Additional services required to return to the preadmission environment? No 0 * Can the patient safely return to the preadmission environment? Yes 0 * Has this patient been hospitalized within the prior 30 days at any hospital? Yes 0 CM MET WITH PT IN ROOM TO DISCUSS DISCHARGE PLANNING AND NEEDS. PT REPORTS LIVING AT [facility] AND WILL BE GOING BACK THERE AT DISCHARGE. PT REPORTS SHE IS READY TO GO NOW AND DOES NOT KNOW WHY THE DOCTOR IS KEEPING HERE IN THE HOSPITAL. PT DENIES NEED TO CALL FAMILY, SHE HAS SPOKEN TO HER SON AND THEY ARE MOVING OUT OF [place]; PT REPORTS THEY CAN GO, SHE HAS CHOSEN TO STAY WHERE SHE IS AT, AT [facility]. PT DENIES FURHTER DISCHARGE NEEDS. CM SPOKE TO EDDIE OF [facility], FACILITY WILL ACCEPT PT BACK AT DISCHARGE; PT WAS IN SKILLED BED IN [place]. UPDATE PROVIDED TO EDDIE BY HAND. FOR DISCHARGE, NURSE REPORT TO BE CALLED TO [facility], . FAX DISCHARGE INFORMATION TO [facility] AT [phone]. [place] TO ARRANGE VAN TRANSPORTATION. Telecom Network Manager: Dino Tsai
--- NOTE | 2016-07-13 16:35 | NUR ---
FSBS 276. 6 UNITS HUMALOG ADMINISTERED PER SLIDING SCALE. NO DISTRESS. PATIENT CONTINUING TO WANT TO GO HOME AND ATTEMPTS TO LEAVE THE UNIT. BED ALARM PATENT. NO DISTRESS. CALL LIGHT WITHIN REACH.
--- NOTE | 2016-07-13 17:41 | NUR ---
MEDICATED FOR ANXIETY. PATIENT CONTINUES TO TRY AND LEAVE UNIT AT THIS TIME. NO DISTRESS.
--- NOTE | 2016-07-13 17:45 | NUR ---
PER , CALLED [facility] TO FIND OUT EXACTLY WHY PATIENT WAS SENT TO [facility]. STATES THAT IF IT WAS ONLY BECAUSE OF AMS THAT PATIENT IS AT [facility] AND CAN BE SENT BACK TO ALF TOMORROW. STAFF, PRAVEEN, AT [place] STATES THAT PATIENTS BEHAVIOR WAS OUT OF THE ORDINARY DOING THINGS SHE WOULD NOT NORMALLY DO LIKE URINATING IN THE FLOOR IN FRONT OF EVERYONE. THANKED PRAVEEN FOR THE INFORMATION AND RELAY THIS TO .
--- NOTE | 2016-07-13 19:10 | NUR ---
REPORT GIVEN TO ONCOMING NURSE. NO DISTRESS.
--- NOTE | 2016-07-13 19:30 | NUR ---
ASSESSMENT COMPLETE. RESP LABORED, O2 NO IN USE, PLACED NC IN NOSE, ASSIST WITH REPOSITIONING FOR C & C. HUMBLE WELL. RESP LESS LABORED. TELEMETRY SHOWING HR SB WITH PVCS PER DIGITAL FORENSICS EXAMINER. HOB UP SR UP X2, C/L IN REACH. CONTIUE TO MONITOR.
[2016-07-13 20:11] VITALS: BP 158/64
--- NOTE | 2016-07-13 22:22 | NUR ---
PM MEDS GIVEN W/O DIFF. FAMILY MEMBERS VISITING AT BEDSIDE. ASSIST WITH REPOSITIONING FOR C & C. HUMBLE WELL. C/L IN REACH.
--- NOTE | 2016-07-14 01:34 | NUR ---
EYES CLOSED, RESP UNLAB WITH NO S/S OF ACUTE DISTRESS NOTED. C/L IN REACH.
[2016-07-14 02:18] VITALS: BP 159/56
[2016-07-14 06:42] VITALS: BP 146/46
[2016-07-14 08:56] VITALS: BP 170/70
--- NOTE | 2016-07-14 09:55 | NUR ---
PT SITTING IN BEDSIDE CHAIR. ALERT CONVERSANT. REPEATEDLY ASKS WHERE SHE IS. REORIENTATION UNSUCCESSFUL. NO ACUTE DISTRESS NOTED. DENIES NEEDS.
[2016-07-14 12:28] VITALS: BP 146/62
[2016-07-14 15:44] VITALS: BP 141/44
--- NOTE | 2016-07-14 16:42 | NUR ---
CONTROL SYSTEMS DRAFTING OFFICER AT ASSISTING WITH NEEDS. WILL CONT. PLAN OF CARE.
[2016-07-14] MEDS ORDERED: ALBUTEROL2.5 MG/3 M UPD (17:51)
[2016-07-14] MEDS ORDERED: K-DUR20 MEQ PO (17:51)
[2016-07-14] MEDS ORDERED: LASIX INJ40 MG/4 ML PO (17:51)
[2016-07-14] MEDS ORDERED: OMNICEF300 MG PO (18:01)
--- NOTE | 2016-07-14 20:04 | NUR ---
PT SITTING ON SIDE OF BED. ALERT/ORIENTED. O2 @ 3L/NC. JONNATHAN MIDLINE IV IN PLACE AND SALINE LOCKED. PT EXCITED. TELLS NURSE SHE IS GOING HOME TOMORROW. SEE ASSESSMENT. CPOC.
[2016-07-14 22:30] VITALS: BP 162/59
--- NOTE | 2016-07-14 22:45 | NUR ---
HS MEDS HAVE BEEN GIVEN. FSBS 142. LONG DISCUSSION WITH PATIENT ABOUT HER MACULAR DEGENERATION. PT IS VERY INFORMED ON HER CONDITION. REQUESTED PAIN MED GIVEN. SALINE FLUSH TO RIGHT UPPER ARM MIDLINE IV. CPOC. CALL LIGHT IN REACH.
[2016-07-15 01:21] VITALS: BP 156/68
[2016-07-15 05:59] VITALS: BP 175/85
--- NOTE | 2016-07-15 06:46 | NUR ---
AM FSBS 56, PT GIVEN JUICE AND SNACK AND UPON RECHECK, FSBS NOW 91.
--- NOTE | 2016-07-15 07:40 | NUR ---
PT SITTING UP IN BED DENIES NEEDS WILL CONT TO MONITOR.
[2016-07-15 07:49] VITALS: BP 172/57
[2016-07-15 09:24] LABS: MAGNESIUM - SERUM 1.9 mg/dL (1.8-2.4); PHOSPHOROUS 3.8 mg/dL (2.5-4.9); POTASSIUM - SERUM 3.8 mmol/L (3.5-5.1)
--- NOTE | 2016-07-15 09:44 | NUR ---
Patient Name: KATEY CASTRO Encounter No: [id number] : 1940 Primary Insurance: MEDICARE A & B Anticipated DC Date: 07/15/16 Planned Disposition: Nursing Facility GIUSEPPE Cert External Planned Provider: [facility]--TO MEDICARE REHAB BED DCP follow-up note: PATIENT WITH DC ORDER TO RETURN TO [facility]. PING PLACED CALL TO EDDIE AT [facility] TO INFORM OF DC ORDER. EDDIE STATED [facility] WILL PROVIDE VAN TRANSPORTATION AROUND 10:00 AM ON 07/15/16. TIMI FENG INFORMED PATIENT OF DC ORDER TO [facility]. PT AGREES WITH PLAN TO DC TO [facility]. [facility], . PING FAXED DISCHARGE INFORMATION TO [facility] AT [phone]. [facility] TO PROVIDE VAN TRANSPORTATION AT 10:00 AM 07/15/16. Sarai Lundy RN, CM
--- NOTE | 2016-07-15 10:09 | NUR ---
WENT OVER DC PAPERWORK WITH PT PT VERBALIZES UNDERSTANDING. PT UNABLE TO SIGN DUE TO BLIDNESS. DC TELE. DC MIDLINE 15 CM LONG. NO BLEEDING. DRESSING PLACED. CALLED REPORT TO DENISE AT [facility]. [facility] CAME TO RAIL LAYER PT. WHEELED HER OUT.
== END 2016-07-15 10:12 | disposition home or self-care (01) ==
LOC: D.ER 21:00 → D.M2 23:46 → OBSVTIME 23:46 → D.M2 23:46
PROVIDERS: Family Medicine; ADMIT Family Medicine
DX: J44.0 Chronic obstructive pulmonary disease with (acute) lower respiratory infection (principal); J18.9 Pneumonia, unspecified organism; F32.9 Major depressive disorder, single episode, unspecified; I25.10 Atherosclerotic heart disease of native coronary artery without angina pectoris; R41.82 Altered mental status, unspecified; E78.5 Hyperlipidemia, unspecified; E11.9 Type 2 diabetes mellitus without complications; Z79.4 Long term (current) use of insulin; D64.9 Anemia, unspecified; I11.0 Hypertensive heart disease with heart failure; I50.9 Heart failure, unspecified; F41.9 Anxiety disorder, unspecified; H54.0 Blindness, both eyes; I25.2 Old myocardial infarction; Z87.891 Personal history of nicotine dependence

== ENCOUNTER 2016-07-23 10:35 | Emergency (ER) | payer MEDICARE, MEDICAID ==
[2016-07-13 13:08] VITALS: BMI 34.5
[~2016-07-23 10:35] MED LIST changes: +ALBUTEROL2.5 MG/3 M UPD; +K-DUR20 MEQ PO; +LASIX INJ40 MG/4 ML PO; +OMNICEF300 MG PO
[2016-07-23 11:22] LABS: BASOPHILS 0.5 % (0.0-2.0); EOSINOPHILS 1.7 % (0-7); HEMATOCRIT 30.2 % (36.0-48.0); HEMOGLOBIN 9.5 g/dL (12-16); IMMATURE GRANULOCYTES 0.2 % (0-5); LYMPHOCYTES 24.1 % (15-50); MCH 27.1 pg (26.0-34.0); MCHC 31.5 g/dL (31.0-37.0); MCV 86.3 fL (80.0-100.0); MEAN PLATELET VOLUME 8.6 fL (7.4-10.4); NEUTROPHILS 65.5 % (40-80); RDW 15.8 % (11.5-14.5); WBC 6.6 10x3/uL (4.8-10.8)
[2016-07-23 11:26] LABS: PLATELET COUNT 246 10x3/uL (130-400)
[2016-07-23 11:38] LABS: ALKALINE PHOSPHATASE 129 U/L (46-116); ALT (SGPT) 24 U/L (10-68); BILIRUBIN - TOTAL 0.35 mg/dL (0.2-1.3); CALC OSMOLALITY 276 mosm/kg (275-300); CALCIUM 8.8 mg/dL (8.5-10.1); CARBON DIOXIDE 32.8 mmol/L (21.0-32.0); CHLORIDE - SERUM 98 mmol/L (98-107); CREATININE - SERUM 1.6 mg/dL (0.6-1.3); POTASSIUM - SERUM 4.2 mmol/L (3.5-5.1); PROTEIN - SERUM 8.2 g/dL (6.4-8.2); SODIUM 136 mmol/L (136-145); UREA NITROGEN 23 mg/dL (7-18); eGFR NON AFRICAN AMERICAN 33 mL/min (90-120)
[2016-07-23 11:40] LABS: GLUCOSE 118 mg/dL (74-106)
[2016-07-23 11:50] LABS: CHOL - HDL RATIO 3.3 ratio (2.3-4.1); CHOLESTEROL, TOTAL 143 mg/dL (0-200); CREATINE KINASE 47 UL (21-215); HDL CHOLESTEROL 43 mg/dL (32-96); LDL CHOLESTEROL 81 mg/dL (0-100); LDL-HDL RATIO 1.9 ratio (1.5-3.5); TRIGLYCERIDE 97 mg/dL (30-200)
[2016-07-23 11:52] LABS: TROPONIN-I < 0.017 ng/mL (0.000-0.060)
== END 2016-07-23 14:40 | disposition home or self-care (01) ==
LOC: D.ER 10:35
PROVIDERS: Family Medicine
DX: R07.9 Chest pain, unspecified (principal); J44.9 Chronic obstructive pulmonary disease, unspecified; I50.9 Heart failure, unspecified; E11.9 Type 2 diabetes mellitus without complications; Z79.4 Long term (current) use of insulin; N18.9 Chronic kidney disease, unspecified; D64.9 Anemia, unspecified; E03.9 Hypothyroidism, unspecified; F32.9 Major depressive disorder, single episode, unspecified; F17.200 Nicotine dependence, unspecified, uncomplicated

== ENCOUNTER → 2016-08-06 11:09 | Outpatient (CLI) | payer MEDICARE ==
[2016-07-13 13:08] VITALS: BMI 34.5
== END | disposition home or self-care (01) ==
LOC: D.CT 11:00
DX: R91.8 Other nonspecific abnormal finding of lung field (principal)

== ENCOUNTER → 2016-08-12 11:43 | Outpatient (CLI) | payer MEDICARE ==
[2016-07-13 13:08] VITALS: BMI 34.5
== END | disposition home or self-care (01) ==
LOC: D.CT 11:43
DX: J18.9 Pneumonia, unspecified organism (principal)